=== PATIENT | female | born 1970 | race Caucasian/White ===

== ENCOUNTER 2016-09-18 14:49 | Emergency (ER) | payer SELFPAY ==
[~2016-09-18] VITALS: Ht 160 cm; Wt 60.0 kg
[~2016-09-18 14:49] MED LIST: DIPR0.053 TOPICAL
[2016-09-18 14:52] VITALS: BP 120/78; PULSE 105; RESP 20; TEMP 98.2; O2SAT 95
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
[2016-09-18] MEDS ORDERED: KETOROLAC TROMETHAMINE 60 MG/2 ML (IM) VIAL IM ONE (15:45)
[2016-09-18] MEDS ORDERED: ORPHENADRINE INJ 60 MG/2 ML AMP IM ONE (15:45)
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
[2016-09-18] MEDS ORDERED: ROBA500T PO (17:00)
[2016-09-18] MEDS ORDERED: IBUP-232 PO (17:00)
[2016-09-18 17:06] VITALS: BP 118/74
== END 2016-09-18 17:09 | disposition home or self-care (01) ==
LOC: NEPB 14:49
DX: F07.81 Postconcussional syndrome (principal); M79.671 Pain in right foot; Z72.0 Tobacco use; V03.90XD Pedestrian on foot injured in collision with car, pick-up truck or van, unspecified whether traffic or nontraffic accident, subsequent encounter
CPT/HCPCS: 73630; 96372; 99283; J1885; J2360